=== PATIENT | male | born 1985 | race Caucasian/White ===

== ENCOUNTER 2018-11-30 17:22 | Emergency (ER) | payer MEDICAID ==
[~2018-11-30] VITALS: Ht 177.8 cm; Wt 76.7 kg
[~2018-11-30 17:22] MED LIST: IBUP-1542 PO
[2018-11-30 17:43] VITALS: BP 154/77; PULSE 76; RESP 18; Ht 177.8 cm; Wt 76.7 kg
== END 2018-11-30 18:58 | disposition home or self-care (01) ==
LOC: FTE 17:22 → E/R 18:58
DX: R07.89 Other chest pain (principal)
CPT/HCPCS: 71045; 80048; 84484; 85025; 93005; Z7502